=== PATIENT | female | born 1965 | race Caucasian/White ===

== ENCOUNTER → 2020-05-08 | Outpatient (CLI) | payer OTHER ==
[~2020-05-08] MED LIST: ATIVAN1 MG PO; AVELOX 400 MG400 MG PO; IBUPROFEN 400400 M1; NORCO 5-325 TA1 EACH PO; PRILOSEC 20 MG20 MG; SYMBICORT160 MCG/4. IH
== END ==
LOC: CAT 11:09
PROVIDERS: ATTEND Internal Medicine
DX: Z12.2 Encounter for screening for malignant neoplasm of respiratory organs (principal); Z87.891 Personal history of nicotine dependence